=== PATIENT | female | born 1960 | race Caucasian/White ===

== ENCOUNTER 2025-05-03 06:11 | Observation (INO) ==
--- NOTE | 2025-04-19 13:26 | PAT Medication Instructions ---
Medication Instructions Date of Service April 19, 2025 Home Medications celecoxib 100 mg capsule 100 mg PO BID cholecalciferol (vitamin D3) 125 mcg (5,000 unit) tablet (Vitamin D3) 125 mcg PO DAILY estradiol 0.5 mg tablet 0.5 mg PO QAM fexofenadine 180 mg tablet 180 mg PO DAILY PRN Allergy Symptoms fluticasone propionate 50 mcg/actuation nasal spray,suspension 1 spray intranasal DAILY PRN Congestion lisinopril 10 mg tablet 10 mg PO QPM methocarbamol 500 mg tablet 500 mg PO TID omeprazole 20 mg capsule,delayed release 20 mg PO QAM potassium citrate 5 mEq (540 mg) tablet,extended release 5 meq PO QPM kidney stones rosuvastatin 5 mg tablet 5 mg PO QPM semaglutide (weight loss) 20 units subcut Q7D tramadol 50 mg tablet 50 - 100 mg PO TID PRN Pain ASK your surgeon for instructions celecoxib 100 mg capsule 100 mg PO BID estradiol 0.5 mg tablet 0.5 mg PO QAM STOP 7 days prior to surgery semaglutide (weight loss) 20 units subcut Q7D DO NOT take the morning of surgery cholecalciferol (vitamin D3) 125 mcg (5,000 unit) tablet (Vitamin D3) 125 mcg PO DAILY fexofenadine 180 mg tablet 180 mg PO DAILY PRN Allergy Symptoms lisinopril 10 mg tablet 10 mg PO QPM Take morning of surgery With a small sip of water, OTHERWISE NOTHING TO EAT OR DRINK AFTER MIDNIGHT: fluticasone propionate 50 mcg/actuation nasal spray,suspension 1 spray intranasal DAILY PRN Congestion (if needed) methocarbamol 500 mg tablet 500 mg PO TID omeprazole 20 mg capsule,delayed release 20 mg PO QAM tramadol 50 mg tablet 50 - 100 mg PO TID PRN Pain (if needed) Take evening before surgery fexofenadine 180 mg tablet 180 mg PO DAILY PRN Allergy Symptoms (if needed) fluticasone propionate 50 mcg/actuation nasal spray,suspension 1 spray intranasal DAILY PRN Congestion (if needed) lisinopril 10 mg tablet 10 mg PO QPM methocarbamol 500 mg tablet 500 mg PO TID potassium citrate 5 mEq (540 mg) tablet,extended release 5 meq PO QPM kidney stones rosuvastatin 5 mg tablet 5 mg PO QPM tramadol 50 mg tablet 50 - 100 mg PO TID PRN Pain (if needed) Other Notes If you have any questions please call us at [phone] or [phone] or [phone] or [phone]
--- NOTE | 2025-04-24 11:48 | Anesthesiology Consultation ---
Date of Service April 24, 2025 Assessment & Plan (1) Encounter for pre-operative examination: - Infectious disease screening: Per assessment on 04/24/25- No known recent infectious disease contacts. Previous URI vs. allergies a week ago; resolved. DOS > 10 days after symptom onset. Advised to contact surgeon/PAT if symptoms not at baseline prior to surgery. Nothing further needed at this time. - GLP-1 medication instructions: Taking for weight loss. Patient informed that from anesthesia perspective, needs to be stopped at least 7 days prior to surgery. Patient states she was advised by surgeon's office recommendation to stop 2 weeks prior to surgery; therefore last dose will be 04/13/25. DOS 05/03/25. - Acceptable risk for surgery pending surgeon-ordered PCP preop evaluation ([facility]; appt 04/27). Chart Review Chart Review: Patient seen in Pre Admission Testing Teaching & Discussion Pre-Anesthesia Teaching/Discussion Notes: Instructed NPO after midnight before surgery,except medications with 15 cc of water. Medication instructions provided according to the PAT guidelines. History Surgery Operation Date: 05/03/25 09:20 Proposed Procedures p C5 Corpectomy, C4-C6 Fusion, C4-C6 Hardware Removal, Spinal Cord Monitoring - Jaydon Umana, Height/Weight Height: 5 ft 3 in Weight: 72.7 kg Allergies Allergy/AdvReac Type Severity Reaction Status Date / Time meperidine [From Demerol] Allergy swelling, Verified 04/17/25 10:59 hives Medications Home Medications Medication Instructions Recorded Confirmed Last Taken celecoxib 100 mg capsule 100 mg PO BID 04/17/25 04/17/25 Unknown cholecalciferol (vitamin D3) 125 125 mcg PO DAILY 04/17/25 04/17/25 Unknown mcg (5,000 unit) tablet (Vitamin D3) estradiol 0.5 mg tablet 0.5 mg PO QAM 04/17/25 04/17/25 Unknown fexofenadine 180 mg tablet 180 mg PO DAILY PRN Allergy 04/17/25 04/17/25 Unknown Symptoms fluticasone propionate 50 1 spray intranasal DAILY PRN 04/17/25 04/17/25 Unknown mcg/actuation nasal Congestion spray,suspension lisinopril 10 mg tablet 10 mg PO QPM 04/17/25 04/17/25 Unknown methocarbamol 500 mg tablet 500 mg PO TID 04/17/25 04/17/25 Unknown omeprazole 20 mg capsule,delayed 20 mg PO QAM 04/17/25 04/17/25 Unknown release potassium citrate 5 mEq (540 mg) 5 meq PO QPM kidney stones 04/17/25 04/17/25 Unknown tablet,extended release rosuvastatin 5 mg tablet 5 mg PO QPM 04/17/25 04/17/25 Unknown semaglutide (weight loss) 20 units subcut Q7D 04/17/25 04/17/25 Unknown tramadol 50 mg tablet 50 - 100 mg PO TID PRN Pain 04/17/25 04/17/25 Unknown Past Medical History Medical History Heartburn History of COVID-2019, no residual symptoms History of hypertension Hx of hyperlipidemia Hx of renal calculi Hx of sleep apnea Previously used device Retested and "no longer has it" Exercise / Class Metabolic Activity III < 4 Walking/Shop/Light housework Past Surgical History Surgical History History of anesthesia reaction Difficulty urinating after surgery in 1999 History of bilateral tubal ligation History of bunionectomy of left great toe History of bunionectomy of right great toe History of carpal tunnel surgery of right wrist History of postoperative nausea and vomiting Hx of cervical spine surgery C4-6 (1999) Hx of colonoscopy Hx of total hysterectomy with removal of both tubes and ovaries w/appendectomy; one ovary remains Past Anesthesia History No Family Hx of Anesthesia Complications and Other (Difficulty urinating after surgery in 1999) History of PONV No Hx of Motion Sickness and History of PONV Social History Smoking Status: Former smoker Do You Dip or Chew Tobacco: No Smoking End Date: Quit 2014 Hx Alcohol Use: Yes alcohol intake frequency: holidays/special occasions only Hx Substance Use: No substance use type: does not use Review of Systems Patient denies chest pain, shortness of breath, fever, chills, cough, wheezing, palpitations. Physical Exam Vital Signs BP 94/65 P 93 TEMP 98.1 SP02 96%RA RESP 16 Physical Full cervical extension range of motion. Full TMJ range of motion. TMD 3 finger breaths Mallampati Score I Dentition: upper full denture, + missing lower molars Lungs: clear throughout to auscultation Cardiac: regular rate and rhythm, no murmurs noted Spine: normal Carotid arteries: negative bruit Extremities: no LE edema Lab Results Anesthesia Preop Results Results Anesthesia Widget: WBC 6.30 K/ul (4.8-10.8) 04/24/25 Hgb 12.1 g/dl (12.0-16.0) 04/24/25 Hct 35.1 % (37.0-47.0) L 04/24/25 Plt 246 K/uL (130-400) 04/24/25 PT 9.8 Seconds (9.0-12.0) 04/24/25 PTT 27 Seconds (21-31) 04/24/25 INR 0.9 (0.9-1.1) 04/24/25 Urine Color Dark Yellow 04/24/25 Urine Appearance Clear (Clear) 04/24/25 Urine pH 6.0 (4.5-7.5) 04/24/25 Urine Specific [place] 1.025 (1.000-1.030) 04/24/25 Urine Protein Trace (Negative) H 04/24/25 Urine Glucose (UA) Negative (Negative) 04/24/25 Urine Ketones Trace (Negative) H 04/24/25 Urine Blood 2+ (Negative) H 04/24/25 Urine Nitrite Negative (Negative) 04/24/25 Urine Bilirubin Negative (Negative) 04/24/25 Urine Urobilinogen Negative (Negative) 04/24/25 Urine Leukocyte Esterase Trace (Negative) H 04/24/25 Urine WBC (Auto) 0-5 /hpf (0-5) 04/24/25 Urine RBC (Auto) >20 /hpf (0-2) H 04/24/25 Urine Hyaline Casts (Auto) 3-5 /lpf (0-2) H 04/24/25 Urine Epithelial Cells (Auto) 6-10 /hpf (0-2) H 04/24/25 Urine Bacteria (Auto) 1+ (None Seen) H 04/24/25 Blood Type O Positive 04/24/25 Antibody Screen NEGATIVE 04/24/25 Testing Laboratory Results *Preop UA findings do not meet criteria for reflex to urine culture per [facility]* 03/27/25 SODIUM 139 POTASSIUM 4.2 CHLORIDE 106 CO2 29.2 BUN 25.7 CREATININE 1.15 GLUCOSE 95 Electrocardiogram Date: 04/24/25 NSR at 85bpm. "Normal ECG" Chest X-Ray Date: 04/24/25 Findings: + NAD
[2025-05-03] MEDS: LR 60ML/HR IV SCH (06:41)
[2025-05-03] MEDS: CeleBREX 200 MG CAP PO SCH (06:41)
[2025-05-03] MEDS: ACETAMINOPHEN 500 MG TAB PO SCH (06:41)
[2025-05-03] MEDS: GABAPENTIN 600 MG DOSE PO SCH (06:41)
[2025-05-03] MEDS: LR 15ML/HR IV SCH (06:42)
[2025-05-03] MEDS ORDERED: LIDOCAINE 2% 2 ML VIAL/AMP(20MG/ML) INFIL ONE (07:07)
[2025-05-03] MEDS ORDERED: DEXAMETHASONE SOD INJ 4 MG/ML VIAL ONE (07:07)
[2025-05-03] MEDS ORDERED: PROPOFOL IV EMULSION 10 MG/ML 20 ML VIAL IV ONE (07:07)
[2025-05-03] MEDS ORDERED: ROCURONIUM BROMIDE 10 MG/ML 5 ML VIAL IV ONE (07:07)
[2025-05-03] MEDS ORDERED: ONDANSETRON INJ 2 MG/ML 2 ML VIAL ONE (07:07)
[2025-05-03] MEDS ORDERED: SUGAMMADEX SODIUM 200 MG/2 ML VIAL IV ONE (07:08)
[2025-05-03] MEDS ORDERED: MIDAZOLAM HCL 1 MG/ML 2ML VIAL ONE (07:08)
[2025-05-03] MEDS ORDERED: GLYCOPYRROLATE 0.2 MG/ML VIAL ONE (07:19)
--- NOTE | 2025-05-03 07:47 | History & Physical Bridge Note ---
Date of Service May 03, 2025 History & Physical Bridge Note I have examined the patient, reviewed the History & Physical and in the interval since the performance of the History & Physical I have noted the following changes of clinical significance: no changes noted
--- NOTE | 2025-05-03 07:48 | History & Physical Report ---
Date of Service May 03, 2025 Assessment & Plan (1) Myelopathy concurrent with and due to spinal stenosis of cervical region: Plan: C5 corpectomy cervical fusion C4-C6 hardware removal C6-C7 History of Present Illness Chief Complaint: Neck and arm pain Primary Care Provider: PERRY Voss This is a 65-year-old female presents with chronic persistent neck and arm pain obtained a course of nonoperative care is here for surgical invention. Allergies Allergy/AdvReac Type Severity Reaction Status Date / Time meperidine [From Demerol] Allergy swelling, Verified 05/03/25 06:24 hives Home Medications Medication Instructions Recorded Confirmed Type celecoxib 100 mg capsule 100 mg PO BID 04/17/25 05/03/25 History cholecalciferol (vitamin D3) 125 125 mcg PO DAILY 04/17/25 05/03/25 History mcg (5,000 unit) tablet (Vitamin D3) estradiol 0.5 mg tablet 0.5 mg PO QAM 04/17/25 05/03/25 History fexofenadine 180 mg tablet 180 mg PO DAILY PRN Allergy 04/17/25 05/03/25 History Symptoms fluticasone propionate 50 1 spray intranasal DAILY PRN 04/17/25 05/03/25 History mcg/actuation nasal Congestion spray,suspension lisinopril 10 mg tablet 10 mg PO QPM 04/17/25 05/03/25 History methocarbamol 500 mg tablet 500 mg PO TID 04/17/25 05/03/25 History omeprazole 20 mg capsule,delayed 20 mg PO QAM 04/17/25 05/03/25 History release potassium citrate 5 mEq (540 mg) 5 meq PO QPM kidney stones 04/17/25 05/03/25 History tablet,extended release rosuvastatin 5 mg tablet 5 mg PO QPM 04/17/25 05/03/25 History semaglutide (weight loss) 20 units subcut Q7D 04/17/25 05/03/25 History tramadol 50 mg tablet 50 - 100 mg PO TID PRN Pain 04/17/25 05/03/25 History Past Med/Surg History Problem List (Updated 05/03/25 @ 07:47 by Jaydon Umana DO) Myelopathy concurrent with and due to spinal stenosis of cervical region Encounter for pre-operative examination Medical History Heartburn History of COVID-19 2019, no residual symptoms History of hypertension Hx of hyperlipidemia Hx of renal calculi Hx of sleep apnea Previously used device Retested and "no longer has it" Surgical History History of anesthesia reaction Difficulty urinating after surgery in 1999 History of bilateral tubal ligation History of bunionectomy of left great toe History of bunionectomy of right great toe History of carpal tunnel surgery of right wrist History of postoperative nausea and vomiting Hx of cervical spine surgery C4-6 (1999) Hx of colonoscopy Hx of total hysterectomy with removal of both tubes and ovaries w/appendectomy; one ovary remains Social History Smoking Status: Former smoker Smoking End Date: Quit 2014; Second Hand Exposure: Yes (hx, years ago); Do You Dip or Chew Tobacco: No; Tobacco Cessation Education Requested by Patient: No Hx Alcohol Use: Yes Hx Substance Use: No Preferred Language: Guatemalan Communication Ability: Effective Salesperson Jewelry Required: No Beliefs That Will Affect Care: None Current Living Situation: Alone Other Information That Helps Us Care for You: No Feels Safe at Home: Yes Safety Concerns: Feels Safe At This Time Assistive Devices: Contacts, Denture - Upper and Glasses Physical Exam Physical Exam: Patient is alert and oriented heart regular rhythm Lungs clear Results & Data Results & Data Vital Signs (Past 12 Hours) Vital Signs Temp Pulse Resp BP Pulse Ox O2 Del Method 05/03/25 06:29 36.5 C 83 16 126/76 100 Room Air
[2025-05-03] MEDS ORDERED: ATROPINE SULFATE 0.1 MG/ML 10ML SYR IV PRN (07:55)
[2025-05-03] MEDS ORDERED: ONDANSETRON INJ 2 MG/ML 2 ML VIAL IV PRN (07:55)
[2025-05-03] MEDS ORDERED: PROMETHAZINE HCL 6.25 MG in SODIUM CHLORIDE 0.9% 50 ML IV PRN (07:55)
[2025-05-03] MEDS ORDERED: HYDROmorphone INJ 2 MG/ML SYR/VIAL ONE (08:28)
[2025-05-03] MEDS: ceFAZolin 330 MG/ML 1 GM VIAL ONE (08:45)
[2025-05-03] MEDS: FLOSEAL HEMOSTATIC MATRIX 10ML TOP ONE (09:29)
--- NOTE | 2025-05-03 09:37 | Operative Report ---
Post Operative Report Pre & Post Diagnosis Operation Date: 05/03/25 07:45 Pre-Op Diagnosis: #1 myelopathy concurrent with and due to Spinal Stenosis of Cervical Region #2 cervical disc herniation C4-C5, C5-C6 Post-Op Diagnosis: Same I identified the patient and participated in the time-out.: Yes Procedure Operation Date: 05/03/25 07:45 Actual Procedures #1 removal of anterior cervical plate C6-C7. #2 exploration of fusion C6-C7. #3 anterior cervical corpectomy Of C5 with bilateral foraminotomies. #4 anterior cervical arthrodesis C4-C6. #5 placement of peek 23 mm cage C4-C6. #6 placement locally harvested morselized autograft combined with os design bone graft in the interbody cage. #7 application of K2 M plate and screws from C4-C7. Surgeon Jaydon Umana, Steeping Press Tender Lynn Mei Estimated Blood Loss 50 Findings Consistent with Post-Op Diagnosis Specimens None Indications This is a 65-year-old female who presents above-mentioned diagnosis of failing course of nonoperative care she is here for surgical invention. Description of Procedure Patient was met with identified informed consent obtained. Patient was then taken to the operative suite underwent a patient placed in spine position just table head [place] laborer heading. All bony promises well-padded eyes inspected to ensure no external pressure placed upon them. This point the anterior cervical spine was prepped and draped normal sterile fashion. The assistance of fluoroscopy identified the C4 level. A longitudinal linear incision was then placed on the right anterior aspect of the cervical spine from C4-C6. Blunt dissection with assistance of bipolar cautery was then performed down to and exposing the anterior cervical spine from C4-C5 to the plate at C6-C7. I then proceeded to remove the anterior cervical plate at C6-C7. Explored the fusion mass noting it to mature and intact. Then performed a complete discectomy of C4-C5 out to the uncovertebral joints bilaterally followed by complete discectomy of C5-C6 out to the uncovertebral joints bilaterally. Hamilton distracting pins were then placed in C4 and C6 to distract across the C5 vertebral body. A complete corpectomy of C5 was then performed including removal of all posterior annular fibers longitudinal ligament bilateral foraminotomies performed. The endplates then burred to subcortical bleeding bone and a 23 mm peek cage filled with locally harvested morselized autograft and os design bone graft tapped in position. Distracting apparatus was removed. A K2 M plate and screws was then placed with the assistance of fluoroscopy from C4-C7. The incision was then copiously irrigated explored to ensure no damage to surrounding structures remaining bleeding. 15 round YONIS drain inserted. The incision was then closed with 2 Vicryl in the fashion of 4 Monocryl for final skin closure. Steri-Strips sterile dressing placed. Patient waken taken to PACU in stable condition. Please note spinal cord monitoring was utilized at the procedure no changes noted. Lynn Mei was present at the entire procedure and brought the patient positioning complex portion of the surgery and final skin closure. I attest to the content of the Intraoperative Record and any orders documented therein. Any exceptions are noted below.
--- NOTE | 2025-05-03 10:24 | Fluoroscopy Report ---
FL cervical 2-3V CLINICAL HISTORY: C5 CORPECTOMY C4-6 FUSION, C4-6 HARDWARE REMOVAL COMPARISON STUDY: None FLUOROSCOPY TIME: 5 seconds FLUOROSCOPY IMAGES: 2 EXPOSURE DOSE: 0.8 mGy FINDINGS: Fluoroscopy was provided for cervical spine fusion. IMPRESSION: Intraoperative fluoroscopy. ACT 112: Negative or not required by law. Electronically signed by: Vinnie Nj M.D. 05/03/2025 10:23 AM
[2025-05-03] MEDS: HYDROmorphone INJ 1 MG/ML SYRINGE IV PRN (10:33)
--- NOTE | 2025-05-03 11:59 | Anesthesiology Progress Note ---
Date of Service May 03, 2025 Anesthesia Post Procedure Vital Signs Vital Signs: Temp Pulse Pulse Resp BP BP Pulse Ox 05/03/25 11:45 85 13 93/76 L 95 05/03/25 11:30 83 12 106/76 96 05/03/25 11:15 83 12 106/75 95 05/03/25 11:00 82 14 104/79 95 05/03/25 10:45 84 12 104/67 97 05/03/25 10:35 36.4 C L 83 12 111/86 97 05/03/25 10:25 83 12 109/81 96 05/03/25 10:15 80 12 117/83 97 05/03/25 10:05 80 16 122/83 98 05/03/25 09:55 85 16 120/78 99 05/03/25 09:45 36 C L 92 H 14 130/81 96 05/03/25 06:29 36.5 C 83 16 126/76 100 O2 Del Method O2 Flow Rate 05/03/25 11:45 Nasal Cannula 2 05/03/25 11:30 Nasal Cannula 2 05/03/25 11:15 Nasal Cannula 2 05/03/25 11:00 Nasal Cannula 2 05/03/25 10:45 Nasal Cannula 2 05/03/25 10:35 Nasal Cannula 2 05/03/25 10:25 Nasal Cannula 2 05/03/25 10:15 Nasal Cannula 2 05/03/25 10:05 Nasal Cannula 3 05/03/25 09:55 Nasal Cannula 3 05/03/25 09:45 Nasal Cannula 3 05/03/25 06:29 Room Air Pain Intensity Left Shoulder: Pain Intensity: 5 Anterior Neck: Pain Intensity: 5 Transfer of Care Handoff Completed per policy Notes Mental Status: alert / awake / arousable and participated in evaluation Patient Amnestic to Procedure: Yes Nausea / Vomiting: adequately controlled Pain: adequately controlled Airway Patency, RR, SpO2: stable & adequate BP & HR: stable & adequate Hydration State: stable & adequate Anesthetic Complications: no major complications apparent
[2025-05-03] MEDS ORDERED: diphenhydrAMINE Capsule 25 MG CAP PO PRN (13:26)
[2025-05-03] MEDS ORDERED: FLUTICASONE PROPIONATE NA SPR 16 GM BTL PRN (13:26)
[2025-05-03] MEDS ORDERED: NALOXONE HCL 0.4 MG/1 ML VIAL/CARP IV PRN (13:26)
[2025-05-03] MEDS ORDERED: ALUMINUM/MAGNESIUM SUSP 30 ML UDC PO PRN (13:26)
[2025-05-03] MEDS ORDERED: HYDROmorphone INJ 1 MG/ML SYRINGE IV PRN (13:26)
[2025-05-03] MEDS ORDERED: SOD PHOSPHATE/SOD BIPHOSPHATE ENEMA 132 ML BTL PR PRN (13:26)
[2025-05-03] MEDS ORDERED: MAGNESIUM HYDROXIDE SUSP 30 ML UDC PO PRN (13:26)
[2025-05-03] MEDS ORDERED: FAMOTIDINE 20 MG TAB PO PRN (13:26)
[2025-05-03] MEDS ORDERED: HYDROmorphone INJ 0.5 MG/0.5 ML SYR IV PRN (13:26)
[2025-05-03] MEDS ORDERED: ONDANSETRON 4 MG OD TAB PO PRN (13:26)
[2025-05-03] MEDS ORDERED: ACETAMINOPHEN 500 MG TAB PO PRN (13:26)
[2025-05-03] MEDS ORDERED: DO NOT ADMINISTER FLU VACCINE PRN (13:26)
[2025-05-03] MEDS ORDERED: dexAMETHasone 8 MG in SYRINGE 0 ML IV PRN (13:26)
[2025-05-03] MEDS ORDERED: DO NOT ADMINISTER PNEUMOCOCCAL VACCINE PRN (13:26)
[2025-05-03] MEDS ORDERED: LORazepam 0.5 MG TAB PO PRN (13:26)
[2025-05-03] MEDS ORDERED: METOCLOPRAMIDE HCL INJ 5 MG/ML 2 ML VIAL IV PRN (13:26)
[2025-05-03] MEDS ORDERED: FEXOFENADINE HCL 180 MG TAB PO PRN (13:26)
[2025-05-03] MEDS ORDERED: ACETAMINOPHEN 1,000 MG/100 ML VIAL IV PRN (13:26)
[2025-05-03] MEDS ORDERED: PROMETHAZINE 12.5 MG/50.5 ML BAG IV PRN (13:26)
[2025-05-03] MEDS ORDERED: LORazepam Inj 0.5 MG in SYRINGE 0.25 ML IV PRN (13:26)
[2025-05-03] MEDS ORDERED: RACEPINEPHRINE 2.25% NEBU SOLN 0.5 ML VIAL INH PRN (13:26)
[2025-05-03] MEDS: ONDANSETRON INJ 2 MG/ML 2 ML VIAL IV PRN (13:57)
[2025-05-03] MEDS: dexAMETHasone 6 MG in SYRINGE 0 ML IV SCH (15:32)
[2025-05-03] MEDS ORDERED: COUGH DROP (SUGAR FREE) LOZ 24 LOZ/1 BOX BUCCAL PRN (16:35)
[2025-05-03] MEDS: ROSUVASTATIN CALCIUM 5 MG TAB PO SCH (20:29)
[2025-05-03] MEDS: DOCUSATE SODIUM/SENNA 50/8.6MG TAB PO SCH (20:29)
[2025-05-04 04:04] VITALS: TEMP 98.1
[2025-05-04] MEDS: POLYETHYLENE (MIRALAX) 17 GM PACK PO SCH (06:20)
[2025-05-04] MEDS: CHOLECALCIFEROL 125 MCG (5,000 UNITS) TAB PO SCH (07:59)
[2025-05-04] MEDS: POTASSIUM CHLORIDE 10 MEQ TABCR PO SCH (08:02)
[2025-05-04 08:28] VITALS: RESP 18
--- NOTE | 2025-05-04 08:30 | Hospitalist Progress Note ---
"Date of Service May 04, 2025 Assessment & Plan Plan Pt is a 65 y/o woman w/ PMHx significant for HLD, HTN, Sleep Apnea, Heartburn, and Anxiety who presents with chronic neck and arm pain for surgical intervention. #Myelopathy d/t spinal stenosis of cervical region - On 05/03 received a corpectomy, C4-C6 Fusion, Spinal Cord monitoring, and a C4-C6 Hardware Removal -Post-op management per primary care team #Vitamin D deficiency | Hypokalemia - -Continue Vit D supplement -Continue Potassium Citrate #Hyperlipidemia - no acute concerns -Continue Crestor #HTN - no acute concerns -Continue Lisinopril #Heartburn - no acute concerns -HOLD Omeprazole -Continue Pantoprazole -Continue Famotidine prn #Sleep Apnea - #Anxiety - no acute concerns -Continue Hydroxyzine, Ativan prn Admission and Anticipated Discharge Date Admission Date: May 03, 2025 Results & Data Results & Data Vital Signs (Past 12 Hours) Vital Signs Temp Pulse Pulse Resp BP Pulse Ox O2 Del Method 05/04/25 07:30 97 H 16 93 Room Air 05/04/25 06:06 98.1 F 91 H 16 98/64 L 96 Nasal Cannula 05/04/25 04:03 98.1 F 101 H 17 114/75 97 Nasal Cannula 05/04/25 02:16 94 Nasal Cannula 05/04/25 01:58 98.4 F 99 H 16 117/78 97 Nasal Cannula 05/03/25 22:04 108 H 20 94 05/03/25 22:02 98.1 F 108 H 16 113/78 95 Nasal Cannula O2 Flow Rate 05/04/25 07:30 05/04/25 06:06 1 05/04/25 04:03 1 05/04/25 02:16 1 05/04/25 01:58 1 05/03/25 22:04 2 05/03/25 22:02 1 PG Care Time/CCT Total # of Minutes Spent Total Time Spent with Patient: Total time spent is greater than 50% in coordination of care (as documented) at patient's floor/unit and/or counseling patient: Coding"
--- NOTE | 2025-05-04 08:39 | Discharge Summary ---
Date of Service May 04, 2025 Admission HPI Per Admitting Provider This is a 65-year-old female presents with chronic persistent neck and arm pain obtained a course of nonoperative care is here for surgical invention. Principal Diagnosis Cervical spinal stenosis with myeloradiculopathy Discharge Data Allergies Allergy/AdvReac Type Severity Reaction Status Date / Time meperidine [From Demerol] Allergy swelling, Verified 05/03/25 06:24 hives Consultations 05/03/25 13:26 Consult Hospitalist Routine Procedures Performed Operation Date: 05/03/25 07:45 Actual Procedures p C5 Corpectomy, C4-C6 Fusion, Spinal Cord Monitoring(Not Applicable) - Jaydon Umana DO s C4-C6 Hardware Removal(Not Applicable) - Jaydon Umana DO Ordered Studies 05/03/25 07:45 [place] cervical 2-3V Routine Hospital Course (1) Myelopathy concurrent with and due to spinal stenosis of cervical region: Patient underwent anterior cervical corpectomy and fusion tolerated this well was taken to orthopedic for postoperative. Postoperatively she is swallowing well. No hoarseness. Arm symptoms improved. Ambulating well. YONIS drain decreasing. Subsidy discharged home. Discharge orders instructions from the chart for further review. Total Time Total Time Spent Total Time Spent (In Minutes): 20 minutes Discharge Plan Discharge Items Patient Disposition: Home - Self-Care Reason For Visit: Cervical Spondylosis with Myelopathy and Radiculop Discharge Diagnosis: Cervical spondylosis with myeloradiculopathy Activity: As commented below Non-emergency contact: Primary Care Provider Call non-emergency contact if: you have any medication questions Follow-up/Referrals: Rose Valderrama CRNP [Primary Care Provider] - Diet: Regular Addtl Attending Provider Instructions: ACTIVITY RECOMMENDATIONS: SELF CARE INSTRUCTIONS AFTER CERVICAL FUSIONS 1. No smoking. Smoking drastically decreases the chance of a solid fusion. 2. No bending, lifting more than 5 pounds, or twisting (roll like a log when turning in bed). 3. You may shower 3 days after surgery. Thoroughly dry wound. Do not soak in the tub. 4. Cervical collar: Must be worn at all times including sleeping. You may remove the brace only to bath, eat and if you are sitting in a recliner. 5. Please walk as much as you can for exercise. Gradually increase the distance that you walk as your endurance increases. 6. You may return to previous diet. SPECIAL CARE INSTRUCTIONS: VERY IMPORTANT TO READ AND REVIEW A. Do not take any anti-inflammatory medications (i.e. Indocin, Advil, Aspirin, Naprosyn, Aleve, Motrin, etc.) as these may inhibit the chance of a solid fusion. Tylenol is okay to take. B. Your surgical incision has been closed with a cosmetic suture under the skin that will dissolve in about 6 weeks. In 14 days, you can use a pair of clean scissors and cut the suture that is left outside of the skin at the ends of your incision. C. Complications are uncommon, but please contact us if you have any signs or symptoms of: 1. wound infection (fever higher than 102.5 degrees F, redness, separation of wound, drainage, or increasing pain from the incision) 2. blood clots in legs (pain, swelling, redness and warmth in legs) 3. urinary tract infection (fever higher than 102.5 degrees, burning upon urination or increased frequency of urination) 4. nerve problems (inability to walk on your toes or heels, numbness, loss of bowel or bladder control) 5. any other symptoms that concern you. D. Please call the office at if you have any concerns or questions about your operation or recovery. MANAGING PAIN AFTER SPINAL SURGERY 1. Narcotic medication is intended for short-term use and will be provided for surgical pain. Surgical pain usually lasts for a period of 4-6 weeks. Narcotic medication includes Percocet, Vicodin, Darvocet, Tylenol #3 or Lortab. 2. Longer-term pain is more appropriately treated with non-narcotic medication such as Tylenol ES. 3. Muscle spasm is not appropriately treated with narcotics. Muscle relaxers such as Soma, Flexeril or Skelaxin can be used along with Tylenol ES. 4. Remember that we all live with some "aches and pains". This is not unusual or uncommon after an injury or as we get older. 5. We will provide appropriate medication within the normal guidelines of their prescribed use. We will also be very cautious and aware of potential abuse and extended duration of patients' medication needs. 6. Please allow 2-3 days to process refills. Prescriptions will not be mailed but must be picked up at the office. FOLLOW UP VISIT: Keep your scheduled follow-up appointment. Any questions, please call the office at . Pending Studies at Discharge: No Stand-Alone Forms: My [facility], Smoking Cessation Medications and DC Order Prescriptions: New oxycodone 5 mg tablet 5 mg PO Q6H PRN (Reason: pain) Qty: 20 0RF Continued methocarbamol 500 mg Tablet 500 mg PO TID Patient Comments: has only been taking once daily fexofenadine [Radha] 180 mg Tablet 180 mg PO DAILY PRN (Reason: Allergy Symptoms) tramadol 50 mg Tablet 50 - 100 mg PO TID PRN (Reason: Pain) lisinopril 10 mg Tablet 10 mg PO QPM omeprazole 20 mg Capsule,Delayed Release(Dr/Ec) 20 mg PO QAM estradiol 0.5 mg Tablet 0.5 mg PO QAM Rx Instructions: off 5 days; repeat cycle celecoxib 100 mg Capsule 100 mg PO BID fluticasone propionate 50 mcg/actuation [place],Suspension 1 spray INTRANASAL DAILY PRN (Reason: Congestion) Rx Instructions: administer into each nostril potassium citrate 5 mEq (540 mg) Tablet Extended Release 5 meq PO QPM rosuvastatin 5 mg Tablet 5 mg PO QPM cholecalciferol (vitamin D3) [Vitamin D3] 125 mcg (5,000 unit) Tablet 125 mcg PO DAILY semaglutide (weight loss) 20 units subcut Q7D Patient Comments: Rx Instructions: compounded version Discharge Orders: Discharge Order (Routine); Ordered 05/04/25 Ordered By: Jaydon Umana Admission Data Admit Date/Time: 05/03/25 09:40 Attending Provider: Jaydon Umana Admit Provider: Jaydon Umana Primary Care Provider: Rose Valderrama Other Providers: [employer],[facility]; Mary Link
[2025-05-04 08:56] VITALS: BP 100/64; PULSE 106; O2SAT 97
--- NOTE | 2025-05-04 10:16 | Hospitalist Consultation ---
Date of Consultation May 04, 2025 Assessment & Plan (1) Myelopathy concurrent with and due to spinal stenosis of cervical region: (2) Vitamin D deficiency: (3) Hx of hyperlipidemia: (4) History of hypertension: Plan Pt is a 65 y/o woman w/ PMHx significant for HLD, HTN, Sleep Apnea, Heartburn, and Anxiety who presents with chronic neck and arm pain for surgical intervention. #Myelopathy d/t spinal stenosis of cervical region - On 05/03 received a c orpectomy, C4-C6 Fusion, Spinal Cord monitoring, and a C4-C6 Hardware Removal -Post-op management per primary care team #Vitamin D deficiency | Hypokalemia - no acute concerns -Continue Vit D supplement -Continue Potassium Citrate #Hyperlipidemia - no acute concerns -Continue Crestor #HTN - no acute concerns -Continue Lisinopril #Heartburn - no acute concerns -Continue Pantoprazole -Continue Famotidine prn #Sleep Apnea - no acute concerns #Anxiety - no acute concerns -Continue Hydroxyzine, Ativan prn Medically stable; agree with discharge. Supervising Physician Co-Signing Physician Notes PA Supervision Note: I personally saw and examined the patient. I verified all perez points and agree with PA Glatt with the following exceptions and/or additions: S-patient seen and is doing well, has minimal pain. She is ambulating. She is eating and drinking without nausea or vomiting. Denies chest pains or shortness of breath, no lightheadedness. O- Vitals reviewed Gen: AAOx3, NAD HEENT: Anicteric sclerae, EOMI, dressing over anterior right side of neck is clean dry and intact CV: RRR no mgr nl S1S2 Pulm: CTAB no wcr No labs to review A/Q-03-pwlb-old female with history noted as above here for cervical discectomy and fusion with Dr. Umana. Patient is doing well from medical standpoint. Her blood pressures have been a bit soft but she is stable and will be okay to resume home lisinopril on discharge Medically stable for discharge History of Present Illness Reason for Consultation: Medical management Attending Physician: Jaydon Umana, DO History of Present Illness Pt is a 65 y/o woman w/ PMHx significant for HLD, HTN, Sleep Apnea, Heartburn, and Anxiety who presents with chronic neck and arm pain for surgical intervention after failing conservative treatment. She is sitting at bedside this morning in [facility]. She notes that she is feeling much improved after her surgery and notes that she is in far less pain now than she was prior. She states she is able to ambulate well on her own and has no concerns. Pt admits to mild-soreness in throat following procedure denies any cough/congestion. Pt is passing gas; she has not yet had a bowel movement. Pt denies chills, H/A, CP, SOB, Palpitations, abdominal pain/discomfort, N/V/D, increasing pain at incision site. Allergies Allergy/AdvReac Type Severity Reaction Status Date / Time meperidine [From Demerol] Allergy swelling, Verified 05/03/25 06:24 hives Home Medications Medication Instructions Recorded Confirmed Type celecoxib 100 mg capsule 100 mg PO BID 04/17/25 05/03/25 History cholecalciferol (vitamin D3) 125 125 mcg PO DAILY 04/17/25 05/03/25 History mcg (5,000 unit) tablet (Vitamin D3) estradiol 0.5 mg tablet 0.5 mg PO QAM 04/17/25 05/03/25 History fexofenadine 180 mg tablet 180 mg PO DAILY PRN Allergy 04/17/25 05/03/25 History Symptoms fluticasone propionate 50 1 spray intranasal DAILY PRN 04/17/25 05/03/25 History mcg/actuation nasal Congestion spray,suspension lisinopril 10 mg tablet 10 mg PO QPM 04/17/25 05/03/25 History methocarbamol 500 mg tablet 500 mg PO TID 04/17/25 05/03/25 History omeprazole 20 mg capsule,delayed 20 mg PO QAM 04/17/25 05/03/25 History release potassium citrate 5 mEq (540 mg) 5 meq PO QPM kidney stones 04/17/25 05/03/25 History tablet,extended release rosuvastatin 5 mg tablet 5 mg PO QPM 04/17/25 05/03/25 History semaglutide (weight loss) 20 units subcut Q7D 04/17/25 05/03/25 History tramadol 50 mg tablet 50 - 100 mg PO TID PRN Pain 04/17/25 05/03/25 History oxycodone 5 mg tablet 5 mg PO Q6H PRN pain #20 tabs 05/03/25 Rx Patient History Medical History Heartburn History of COVID-19 2019, no residual symptoms History of hypertension Hx of hyperlipidemia Hx of renal calculi Hx of sleep apnea Previously used device Retested and "no longer has it" Surgical History History of anesthesia reaction Difficulty urinating after surgery in 1999 History of bilateral tubal ligation History of bunionectomy of left great toe History of bunionectomy of right great toe History of carpal tunnel surgery of right wrist History of postoperative nausea and vomiting Hx of cervical spine surgery C4-6 (1999) Hx of colonoscopy Hx of total hysterectomy with removal of both tubes and ovaries w/appendectomy; one ovary remains Social History Smoking Status: Former smoker Smoking End Date: Quit 2014; Second Hand Exposure: Yes (hx, years ago); Do You Dip or Chew Tobacco: No; Tobacco Cessation Education Requested by Patient: No Hx Alcohol Use: Yes Hx Substance Use: No Preferred Language: Egyptian Communication Ability: Effective Mission Coordinator Required: No Beliefs That Will Affect Care: None Current Living Situation: Alone Other Information That Helps Us Care for You: No Feels Safe at Home: Yes Safety Concerns: Feels Safe At This Time Assistive Devices: Cane and Walker Review of Systems Review of Systems: All systems reviewed & are unremarkable except as noted in Subjective Physical Exam Physical Exam: General: Pt is a 65 y/o overweight female in NAD sitting at bedside. VS: reviewed - remarkable Skin: Dressing visualized on anterior aspect of neck, dry; Otherwise skin is warm and dry; no lesions or ulcerations Respiratory: CTA bilat, no adventitious sounds noted. Chest expansion is full and symmetrical Cardio: RRR no murmurs Abdomen: Round, normoactive BS x4, nontender to palpation MSK: FROM of extremities, no deformities Extremities: no edema Neuro: A&Ox4, cooperative Results & Data Results & Data Vital Signs (Past 12 Hours) Vital Signs Temp Pulse Pulse Resp BP BP Pulse Ox 05/04/25 08:54 106 H 18 100/64 97 05/04/25 08:20 98.1 F 18 99/66 L 94 05/04/25 07:30 97 H 16 93 05/04/25 07:15 05/04/25 06:06 98.1 F 91 H 16 98/64 L 96 05/04/25 04:03 98.1 F 101 H 17 114/75 97 05/04/25 02:16 94 05/04/25 01:58 98.4 F 99 H 16 117/78 97 O2 Del Method O2 Flow Rate 05/04/25 08:54 Room Air 05/04/25 08:20 Room Air 05/04/25 07:30 Room Air 05/04/25 07:15 Nasal Cannula 1 05/04/25 06:06 Nasal Cannula 1 05/04/25 04:03 Nasal Cannula 1 05/04/25 02:16 Nasal Cannula 1 05/04/25 01:58 Nasal Cannula 1 Laboratory Results No labs to be reviewed PG Care Time/CCT Total # of Minutes Spent Total Time Spent with Patient: Total time spent is greater than 50% in coordination of care (as documented) at patient's floor/unit and/or counseling patient: Coding Level of Care Code 84984 IN/OBS CONSULT LVL 2,35M Diagnoses Myelopathy concurrent with and due to spinal stenosis of cervical region M48.02; G99.2 Vitamin D deficiency E55.9 Hx of hyperlipidemia Z86.39 History of hypertension Z86.79
== END 2025-05-04 11:24 | disposition home or self-care (01) ==
LOC: ASU 06:11 → 3E 06:11
DX: G95.9 Disease of spinal cord, unspecified; G47.33 Obstructive sleep apnea (adult) (pediatric); G47.30 Sleep apnea, unspecified; Z86.79 Personal history of other diseases of the circulatory system; E87.6 Hypokalemia; Z79.899 Other long term (current) drug therapy; R12 Heartburn; Z88.8 Allergy status to other drugs, medicaments and biological substances; M48.02 Spinal stenosis, cervical region; Z86.39 Personal history of other endocrine, nutritional and metabolic disease; Z87.891 Personal history of nicotine dependence; E55.9 Vitamin D deficiency, unspecified; F41.9 Anxiety disorder, unspecified